=== PATIENT | female | born 1960 | race Caucasian/White ===

== ENCOUNTER 2018-04-21 21:13 | Emergency (ER) | payer BC ==
--- NOTE | 2018-04-21 22:16 | ED ---
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 Pt had chemo two days ago, and received a new regime. She was feeling OK after the chemo, but last night was having hot flashes and chills. Max temp: 102.5 F. Associated sxL chills, nausea. Denies dizziness, GALLEGOS, cough, abd pain, vomiting/diarrhea, rash. She took Tylenol which alleviated the sx. Her CA was dx in November 2017. - History of Current Complaint Chief Complaint: EDFever Time Seen by Provider: 04/21/18 22:11 Hx Obtained From: Patient, Family/Underlay Stitcher Onset/Duration: Started Hours Ago, Atraumatic, Resolved Timing: Constant Initial Severity: Severe Current Severity: Mild Pain Intensity: 0 Pain Scale Used: 0-10 Numeric Alleviating Factors: OTC Medicine Associated Signs and Symptoms: Chills, Nausea, Other: - neg: dizziness, GALLEGOS, cough, abd pain, vomiting/diarrhea, rash - Allergy/Home Medications Allergies/Adverse Reactions: Allergies Allergy/AdvReac Type Severity Reaction Status Date / Time naproxen Allergy Hives Verified 04/21/18 21:41 Home Medications: Home Medications Magnesium Oxide [Magnesium] 500 mg PO DAILY 04/21/18 [History Confirmed 04/21/18 ] PMH/Surg Hx/FS Hx/Imm Hx Previously Healthy: No Endocrine/Hematology History: Reports: Hx Diabetes Cardiovascular History: Reports: Hx Hypertension Denies: Hx Pacemaker/ICD History: Denies: Hx Renal Disease Sensory History: Denies: Hx Hearing Aid Psychiatric History: Denies: Hx Panic Disorder - Cancer History Cancer Type, Location and Year: cholangiocarcinoma - dx November 2017 Hx Chemotherapy: Yes - Surgical History Surgery Procedure, Year, and Place: CHOLECYSTECTOMY 1994, WISDOM TEETH REMOVAL Infectious Disease History: No Infectious Disease History: Denies: Traveled Outside the [place] in Last 30 Days - Family History Known Family History: Positive: Other Family History: neg: breast CA - Social History Occupation: Employed Full-time Lives: With Family Alcohol Use: Rare Substance Use Type: Reports: None Smoking Status (MU): Never Smoked Tobacco Review of Systems Positive: Fever, Chills Positive: Nausea. Negative: Abdominal Pain, Vomiting, Diarrhea Negative: Rash Neurological: Other - neg: dizziness Negative: Headache All Other Systems Reviewed And Are Negative: Yes Physical Exam - Summary Physical Exam Summary: Appearance: Well-appearing, Well-nourished, lying in bed comfortably Skin: Warm, dry, no obvious rash Eyes: sclera anicteric, no conjunctival pallor ENT: mucous membranes moist, pharynx appears normal Neck: Supple, nontender Respiratory: Clear to auscultation, no signs of respiratory distress Cardiovascular: Normal S1, S2. No murmurs. Normal distal pulses in tibial and radial bilaterally. Abdomen: Soft, nontender, normal active bowel sounds present Musculoskeletal: Normal, Strength/ROM Intact Neurological: A&Ox3, awake and alert, mentation is normal, speech is fluent and appropriate Psychiatric: affect is normal, does not appear anxious or depressed Triage Information Reviewed: Yes Vital Signs On Initial Exam: Initial Vitals Temp Pulse Resp BP Pulse Ox 98.3 F 106 16 125/96 95 04/21/18 21:29 04/21/18 21:29 04/21/18 21:29 04/21/18 21:29 04/21/18 21:29 Vital Signs Reviewed: Yes Diagnostics - Vital Signs Vital Signs Temp Pulse Resp BP Pulse Ox 04/21/18 21:29 98.3 F 106 16 125/96 95 - Laboratory Result Diagrams: 04/21/18 22:24 04/21/18 22:24 Lab Statement: Any lab studies that have been ordered have been reviewed, and results considered in the medical decision making process. 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 Pt received chemo two days ago. Her laboratory studies look good, particular white blood cell count is normal at 8000. She appears clinically well with no signs of sepsis toxicity. She has no other focal signs of infection by history or physical exam , so there is some concern about line sepsis, but we will have to await her blood cultures on that front. I would hold on empiric antibiotic therapy for the time being. - Diagnoses Provider Diagnoses: Fever Discharge - Sign-Out/Discharge Documenting (check all that apply): Patient Departure - DC - Discharge Plan Condition: Stable Disposition: HOME Patient Education Materials: Fever in Adults (ED) Referrals: Janna Jain MD [Primary Care Provider] - Additional Instructions: Contact your oncologist tomorrow so that they can follow your culture results with the laboratory. - Billing Disposition and Condition Condition: STABLE Disposition: Home - Attestation Statements Document Initiated by Scribe: Yes Documenting Scribe: Dayami Hammonds Provider For Whom Scribe is Documenting (Include Credential): Dr. Saroj Hatch MD Scribe Attestation: Dayami Guillaume, scribed for Dr. Saroj Hatch MD on 04/22/18 at 0638. Scribe Documentation Reviewed: Yes Provider Attestation: The documentation as recorded by the Dayami borden accurately reflects the service I personally performed and the decisions made by me, Dr. Saroj Hatch MD
[2018-04-21 22:32] LABS: ABS Basophils 0 10^3/ul (0-0.2); ABS Eosinophils 0 10^3/ul (0-0.6); ABS Lymphocytes 0.6 10^3/ul (1.0-4.8); ABS Monocytes 0.1 10^3/ul (0-0.8); ABS Neutrophils 7.3 10^3/ul (1.5-7.7); ABS Nucleated RBC 0 10^3/ul; Eosinophil % 0.1 % (0-6); Hematocrit 31 % (35-47); Hemoglobin 10.7 g/dl (12.0-16.0); Lymphocyte % 7.5 % (25-47); Mean Corpuscular HGB Conc 34 g/dl (31-36); Mean Corpuscular Hemoglobin 33 pg (27-31); Mean Corpuscular Volume 98 fL (80-97); Mean Platelet Volume 8.5 um3 (7.4-10.4); Nucleated Red Blood Cells % 0; Platelet Count 146 10^3/ul (150-450); Red Blood Count 3.21 10^6/ul (4.00-5.40); Red Cell Distribution Width 15 % (10.5-15)
[2018-04-21 22:41] LABS: INR 0.99 (0.77-1.02)
[2018-04-21 22:48] LABS: EGFR Non-African American 52.1 (>60)
[2018-04-22 00:13] VITALS: BP 100/70
--- NOTE | 2018-04-22 08:09 | RAD ---
INDICATION: Fever of 102.5 following chemotherapy infusion. COMPARISON: CT of the chest dated April 03, 2018 TECHNIQUE: PA and lateral views of the chest were obtained. FINDINGS: There is a right internal jugular vein Mediport with the tip terminating at the superior vena cava. The heart and mediastinum are normal in size and contour. The lungs are grossly clear. There is no evidence of large pleural effusion. Visualized bones are normal for the patient's age. There is no radiographic evidence of free air beneath the diaphragm IMPRESSION: No radiographic evidence of acute cardiopulmonary disease. R0
== END 2018-04-22 00:14 | disposition home or self-care (01) ==
LOC: ED 21:13
DX: R50.9 Fever, unspecified (principal); C80.1 Malignant (primary) neoplasm, unspecified; C78.89 Secondary malignant neoplasm of other digestive organs; R11.0 Nausea; Z88.6 Allergy status to analgesic agent
CPT/HCPCS: 36415; 71046; 80053; 83605; 85025; 85610; 85730; 87040; 99283

== ENCOUNTER 2020-03-26 11:56 | Observation (INO) ==
[~2020-03-26 11:56] MED LIST: Ondansetron 4 mg VIAL 2 MG/ML 2 ml VIAL IV PRN
[2020-03-26 12:58] LABS: Activated Partial Thrombo Time 33.5 seconds (26.0-38.0)
[2020-03-26 13:11] LABS: BUN/Creatinine Ratio 16.9 (8-20); Calcium 10.8 mg/dL (8.6-10.3); EGFR African American 85.7 (>60); EGFR Non-African American 70.9 (>60); Potassium 3.7 mmol/L (3.5-5.0)
[2020-03-26 13:36] LABS: INR 1.39 (0.82-1.09)
[2020-03-26 13:46] LABS: ABS Eosinophils 0.1 10^3/ul (0-0.6); ABS Lymphocytes 1.2 10^3/ul (1.0-4.8); ABS Monocytes 0.4 10^3/ul (0-0.8); ABS Neutrophils 4.6 10^3/ul (1.5-7.7); Eosinophil % 1.7 %; Hematocrit 32 % (35-47); Hemoglobin 10.8 g/dL (12.0-16.0); Lymphocyte % 18.7 %; Mean Corpuscular HGB Conc 34 g/dL (31-36); Mean Corpuscular Hemoglobin 31 pg (27-31); Mean Corpuscular Volume 92 fL (80-97); Mean Platelet Volume 8.2 fL (7.4-10.4); Platelet Count 146 10^3/uL (150-450); Red Blood Count 3.45 10^6 /uL (3.70-4.87); Red Cell Distribution Width 14 % (10-15); White Blood Count 6.4 10^3/uL (3.5-10.8)
[2020-03-26] MEDS ORDERED: Lidocaine 1% VIAL 10 MG/ML VIAL ONE (13:56)
[2020-03-26] MEDS ORDERED: Heparin 2 UNITS/ML 1000 mls 2,000 ML IV ONE (13:56)
[2020-03-26] MEDS ORDERED: Iohexol 350 (CONTRAST) 200 ML MDV IV ONE (14:00)
[2020-03-26] MEDS ORDERED: ceFAZolin 1 GM* X ONE DOSE (AddVan) IVPB (14:00)
[2020-03-26] MEDS ORDERED: Midazolam 5 mg/5 ml VIAL 1 mg/ml 5 ml VIAL (5 mg) ONE ×2 (14:03→16:18)
[2020-03-26] MEDS ORDERED: fentaNYL 100 mcg/2 ml 50 MCG/ML VIAL ONE ×4 (14:03→16:20)
[2020-03-26] MEDS ORDERED: Heparin 1,000 UNIT/ML 10 ml (10,000 UNITS) CATHLAB/DIALYSIS ONE (14:44)
[2020-03-26] MEDS ORDERED: Metoprolol Tartrate 5 mg VIAL 5 ml VIAL (1 mg/ml) ONE (15:20)
[2020-03-26] MEDS ORDERED: Heparin 2 UNITS/ML 1000 mls 1,000 ML IV ONE (15:47)
[2020-03-26] MEDS ORDERED: Senna TAB 8.6 mg TAB PO PRN (16:59)
[2020-03-26] MEDS ORDERED: NS 0.9% 1000 ml BAG 1,000 ML IV SCH (19:00)
[2020-03-27 05:39] LABS: ABS Eosinophils 0.1 10^3/ul (0-0.6); ABS Lymphocytes 1.1 10^3/ul (1.0-4.8); ABS Monocytes 0.5 10^3/ul (0-0.8); ABS Neutrophils 4.3 10^3/ul (1.5-7.7); Eosinophil % 1.5 %; Hematocrit 31 % (35-47); Hemoglobin 10.5 g/dL (12.0-16.0); Lymphocyte % 18.6 %; Mean Corpuscular HGB Conc 35 g/dL (31-36); Mean Corpuscular Hemoglobin 31 pg (27-31); Mean Corpuscular Volume 91 fL (80-97); Mean Platelet Volume 8.6 fL (7.4-10.4); Platelet Count 140 10^3/uL (150-450); Red Blood Count 3.37 10^6 /uL (3.70-4.87); Red Cell Distribution Width 14 % (10-15); White Blood Count 6.1 10^3/uL (3.5-10.8)
[2020-03-27 06:54] LABS: Albumin 3.6 g/dL (3.2-5.2); Calcium 10.6 mg/dL (8.6-10.3); Total Bilirubin 0.8 mg/dL (0.2-1.0)
[2020-03-27 07:00] LABS: Albumin/Globulin Ratio 1.1 (1-3); BUN/Creatinine Ratio 15.9 (8-20); EGFR African American 86.9 (>60); EGFR Non-African American 71.9 (>60); Globulin 3.2 g/dL (2-4); Total Protein 6.8 g/dL (6.4-8.9)
[2020-03-27] MEDS ORDERED: CMCS: Glimepiride 2 mg TAB (NF) PO SCH (09:00)
[2020-03-27 09:38] VITALS: BP 139/70
== END 2020-03-27 12:30 | disposition home or self-care (01) ==
LOC: EDACCT# → CHICATH 11:56 → MEDTELE 11:56
PROVIDERS: ADMIT Internal Medicine Hematology & Oncology; ATTEND Internal Medicine Hematology & Oncology